=== PATIENT | female | born 1950 | race Caucasian/White ===

== ENCOUNTER 2017-10-02 09:01 | Outpatient (CLI) | payer MEDICARE ==
--- NOTE | 2017-10-02 10:06 | CT ---
CHEST CT SCAN WITHOUT IV CONTRAST: History: 67-year-old female with history of pulmonary nodules demonstrated on a prior MRI. Technique: Noncontrast CT examination of the chest is performed. FINDINGS: There is bilateral hyperinflation and chronic lung changes. There are numerous scattered areas of mariano ear, interstitial, and reticular nodule parenchymal changes bilaterally with numerous scattered small pulmonary nodules up to approximately 0.5 cm in size, some of which are circumscribed and some of wh ich are less well circumscribed. There is evidence for bronchiectasis and scarring and some atelectas is in the right middle lobe and mild scarring in the lingula. There are no discrete nodules greater t rizzo 0.6 cm in size. No evidence for mediastinal mass or adenopathy. No pleural effusion or pericardia l effusion. Visualized upper abdomen is unremarkable. IMPRESSION: Bilateral hyperinflation and chronic lung changes. Numerous scattered up to approximately 0.5 cm diam eter nodules bilaterally, somewhat worse on the right side. Right middle lobe bronchiectasis and scar ring with some minimal volume loss. No discrete 0.6 cm or larger nodules. No mediastinal mass or jose manuel opathy. Depending upon patient's risk fractures, consider follow up CT scan in 6 months to document stability . POS: YON
== END 2017-10-02 09:02 | disposition home or self-care (01) ==
LOC: CT 09:01
PROVIDERS: ATTEND Internal Medicine
DX: A31.0 Pulmonary mycobacterial infection (principal); R91.8 Other nonspecific abnormal finding of lung field; J98.4 Other disorders of lung
CPT/HCPCS: 71250

== ENCOUNTER 2018-07-09 09:04 | Outpatient (CLI) | payer MEDICARE | END 2018-07-09 09:05 | disposition home or self-care (01) | LOC: BICCT 09:04 | PROVIDERS: ATTEND Internal Medicine | DX: R91.8 Other nonspecific abnormal finding of lung field (principal); J90 Pleural effusion, not elsewhere classified | CPT/HCPCS: 71250 ==

== ENCOUNTER 2018-08-21 11:01 | Outpatient (CLI) | payer MEDICARE ==
--- NOTE | 2018-08-25 12:57 | RAD ---
MODIFIED BARIUM SWALLOW WITH SPEECH THERAPIST: History: Pneumonitis due to inhalation of food and vomit. Feeding difficulties. Gastroesophageal refl ux disease. FINDINGS/IMPRESSION: A modified barium swallow was performed by the speech therapist and a video was performed. No aspirat ion or penetration was seen during the examination. Please see dedicated speech therapy report for sp ecific findings and recommendations. POS: [facility]
== END 2018-08-21 11:02 | disposition home or self-care (01) ==
PROVIDERS: ATTEND Internal Medicine
DX: J69.0 Pneumonitis due to inhalation of food and vomit (principal); R13.19 Other dysphagia; R63.3 Feeding difficulties; K21.9 Gastro-esophageal reflux disease without esophagitis
CPT/HCPCS: 74230; G8996-GN-CH; G8997-GN-CH; G8998-GN-CH

== ENCOUNTER 2018-09-08 18:00 | Outpatient (CLI) | payer MEDICARE | END 2018-09-08 18:01 | disposition home or self-care (01) | LOC: SLEEPLAB 18:00 | PROVIDERS: ATTEND Internal Medicine | DX: G47.33 Obstructive sleep apnea (adult) (pediatric) (principal); R53.83 Other fatigue; R35.1 Nocturia; R06.83 Snoring; G47.00 Insomnia, unspecified; Z68.1 Body mass index [BMI] 19.9 or less, adult | CPT/HCPCS: 95806 ==

== ENCOUNTER 2019-03-30 08:56 | Outpatient (CLI) | payer MEDICARE ==
--- NOTE | 2019-03-30 09:27 | CT ---
EXAM: CT of the chest without contrast HISTORY: Intermittent right-sided pneumonia COMPARISON: 10/02/2017 TECHNIQUE: Multiple contiguous axial images were obtained in a CT the chest without contrast. Coronal reformats were performed. FINDINGS: HEART: Normal in size without focal cardiac abnormality MEDIASTINUM: No hilar or mediastinal lymphadenopathy. Evaluation of the mediastinum is limited withou t IV contrast. LUNGS: There are multifocal areas of airspace opacity in the lungs. These are predominantly in the ri ght lung but there is also a region in the left lower lobe. The majority of these areas are not mass like. However a few areas of nodularity are seen scattered amongst the airspace opacities. The l argest measures 10 mm in size. When compared to the prior examination, these appear to be worsening. Developing bronchiectasis is seen in the right lung. PLEURAL SPACE: Small right pleural effusion CHEST WALL SOFT TISSUES: Unremarkable OSSEOUS STRUCTURES: Unremarkable VISUALIZED SUBDIAPHRAGMATIC STRUCTURES: Unremarkable IMPRESSION: 1. Worsening multifocal areas of airspace opacity in the lungs. This could be secondary to an chronic inflammatory or infectious process. Malignancy is much less likely but also of consideration. 2. Development of small right pleural effusion
== END 2019-03-30 08:57 | disposition home or self-care (01) ==
LOC: CT 08:56
PROVIDERS: ATTEND Internal Medicine
DX: R05 Cough (principal); R91.8 Other nonspecific abnormal finding of lung field; A31.0 Pulmonary mycobacterial infection; J90 Pleural effusion, not elsewhere classified
CPT/HCPCS: 71250

== ENCOUNTER 2019-03-31 06:55 | Day surgery (SDC) | payer MEDICARE ==
[2019-03-30 17:45] VITALS: BMI 14.3
[2019-03-31] MEDS ORDERED: Lidocaine 2% 10 ML INJ ONE (07:56)
[2019-03-31] MEDS ORDERED: Propofol 1,000 MG/100 ML VIAL IV ONE (09:41)
[2019-03-31] MEDS ORDERED: Fentanyl 250 MCG/5 ML VIAL ONE (09:42)
[2019-03-31 12:05] LABS: BF Color Red; BF WBC/Nonhematics Ct. - Manua 2280 /cumm; Body Fluid Source Bronchial Washings; Clarity Cloudy/Turbid (Clear); Tube # EDTA
[2019-03-31 12:24] LABS: BF Segmented Neutrophils 35 %; Cell Count Non Hematic 60 %; Lymphocytes 5 %
--- NOTE | 2019-03-31 16:27 | OP ---
DATE OF PROCEDURE: 03/31/2019 SERVICE: Pulmonary Medicine. PROCEDURES PERFORMED: Fiberoptic bronchoscopy with; 1. Visual airway inspection. 2. Bronchoalveolar lavage of the right middle lobe. 3. Transbronchial biopsies from the right upper lobe, right middle lobe, right lower lobe. PREPROCEDURE DIAGNOSES: 1. Pulmonary infiltrate. 2. Bronchiectasis exacerbation. POSTPROCEDURE DIAGNOSES: 1. Pulmonary infiltrate. 2. Bronchiectasis exacerbation. ANESTHESIA: General anesthesia. PREANESTHESIA ASSESSMENT: H and P had been performed. The patient's medications and allergies were reviewed. Informed consent was obtained after discussing the risks, benefits, and rationale for performing the procedure as well as alternative options. DESCRIPTION OF PROCEDURE: A time-out was performed identifying the correct procedure and the patient with name and date of . A diagnostic fiberoptic bronchoscope was introduced through the 8.0 endotracheal tube. The bronchoscope was advanced into the trachea, where the tracheobronchial tree inspection was carried out with identification of the right upper lobe, right middle lobe, right lower lobe, left upper lobe, lingula, and left lower lobe. Anatomy was normal to the segmental level. Bronchoalveolar lavage was obtained from the right middle lobe. Under fluoroscopic guidance, transbronchial biopsies were obtained from the posterior segment of the right upper lobe, lateral segment of the right middle lobe, and superior segment of the right lower lobe. Hemostasis was verified and the bronchoscope was subsequently removed from the patient. Postprocedure fluoroscopy did not demonstrate a pneumothorax. FINDINGS: 1. Morena was very sharp. 2. No discrete endobronchial disease was present. 3. Secretions were a very thick, purulent, and slimy. That being said, they were only [id number] in quantity. SPECIMENS OBTAINED: 1. Pathology on BAL and transbronchial biopsies. 2. Microbiology on BAL. COMPLICATIONS: None. ESTIMATED BLOOD LOSS: 2 mL. FLUOROSCOPY TIME: 1 minute 30 seconds. DISPOSITION: The patient will be discharged home with postprocedure instructions. She will return to clinic as previously set up in 6 weeks. Job ID: [id number]
[2019-04-03 12:12] LABS: Fungus Stain Final report (.)
== END 2019-03-31 12:37 | disposition home or self-care (01) ==
LOC: SDC 06:55
PROVIDERS: ATTEND Internal Medicine
PROC: 0B9F8ZX Drainage of Right Lower Lung Lobe, Via Natural or Artificial Opening Endoscopic, Diagnostic (ICD-10-PCS; principal; 2019-03-31)
PROC: 0B9C8ZX Drainage of Right Upper Lung Lobe, Via Natural or Artificial Opening Endoscopic, Diagnostic (ICD-10-PCS; 2019-03-31)
PROC: 0B9G8ZX Drainage of Left Upper Lung Lobe, Via Natural or Artificial Opening Endoscopic, Diagnostic (ICD-10-PCS; 2019-03-31)
PROC: 0BDF8ZX Extraction of Right Lower Lung Lobe, Via Natural or Artificial Opening Endoscopic, Diagnostic (ICD-10-PCS; 2019-03-31)
PROC: 0BDC8ZX Extraction of Right Upper Lung Lobe, Via Natural or Artificial Opening Endoscopic, Diagnostic (ICD-10-PCS; 2019-03-31)
PROC: 0BDG8ZX Extraction of Left Upper Lung Lobe, Via Natural or Artificial Opening Endoscopic, Diagnostic (ICD-10-PCS; 2019-03-31)
DX: J47.1 Bronchiectasis with (acute) exacerbation (principal); R91.8 Other nonspecific abnormal finding of lung field
CPT/HCPCS: 85060; 87070; 87102; 87116; 87205; 87206; 88112; 88305; 88312; 88313; 89051; J2001; J2704; J3010; J7620

== ENCOUNTER 2019-04-01 12:44 | Inpatient (IN) | payer MEDICARE ==
[2019-04-01] MEDS ORDERED: Acetaminophen 325 MG TAB ONE (12:55)
[2019-04-01 13:22] LABS: #Eosinphils 0.1 thou/uL (0.0-0.7); #Lymphocytes 0.9 thou/uL (1.20-3.40); #Monocytes 0.7 thou/uL (0.11-0.59); %Basophils 0.1 % (0.0-1.0); %Eosinophils 0.5 % (0.0-10.0); %Lymphocytes 7.8 % (21.0-51.0); %Monocytes 5.6 % (0.0-10.0); Hemoglobin 12.5 g/dL (12.0-16.0); Mean Corpuscular HGB CONC 33.4 g/dL (32.0-36.0); Mean Corpuscular Hemoglobin 30.3 pg (27.0-31.0); Mean Corpuscular Volume 90.8 fL (78.0-98.0); Mean Platelet Volume 6.7 fL (7.4-10.4); Platelet Count 269 thou/uL (130-400); Red Blood Cell (RBC) Count 4.12 mill/uL (4.20-5.40); White Blood Cell (WBC) Count 11.6 thou/uL (4.8-10.8)
[2019-04-01 13:46] LABS: ALT (SGPT) 16 U/L (8-55); AST (SGOT) 18 U/L (5-34); Albumin 3.4 g/dL (3.4-4.8); Alkaline Phosphatase 69 U/L (40-150); Anion Gap 13 mmol/L (10-20); BUN (Urea Nitrogen) 11 mg/dL (9.8-20.1); Bilirubin, Total 1.3 mg/dL (0.2-1.2); Calc. Creatinine Clearance 0 mL/min (70-130); Calcium 9.1 mg/dL (7.8-10.44); Carbon Dioxide 23 mmol/L (23-31); Chloride 97 mmol/L (98-107); Estimated GFR-MDRD 35; Globulin 2.9 g/dL (2.4-3.5); Glucose 85 mg/dL (80-115); Potassium 3.9 mmol/L (3.5-5.1); Protein, Total 6.3 g/dL (6.0-8.3); Sodium 129 mmol/L (136-145)
[2019-04-01 13:51] LABS: Bilirubin Negative (Negative); Blood, Urine Moderate (Negative); Clarity CLOUDY (Clear); Glucose, Urine (Dipstick) Negative (Negative); Leukocyte Negative (Negative); Nitrite Negative (Negative); Protein, Urine (Dipstick) Negative (Neg-Trace); Specific Gravity, Urine 1.015 (1.002-1.036); Urobilinogen 0.2 mg/dL (0.2-1.0)
[2019-04-01 13:53] LABS: Bacteria/HPF None Seen HPF (None Seen); Hyaline Casts/LPF 0-3 HYALINE CAST LPF (0-3 Hyaline); Squamous Epithelial 0-3 HPF (0-3); WBC/HPF None Seen HPF (0-3)
[2019-04-01 13:54] LABS: Yeast-AUWi Flag 25.4 (0-25.0)
--- NOTE | 2019-04-01 13:56 | RAD ---
SINGLE VIEW OF THE CHEST: COMPARISON: 03/17/2019. HISTORY: Previous lung biopsy. Weakness and fever. FINDINGS: A single view of the chest shows a normal size cardiomediastinal silhouette. There is worsening of t he previously seen airspace opacity projecting over the right lung. No left-sided infiltrates are se en. IMPRESSION: Worsening right pulmonary infiltrate. POS: [facility]
[2019-04-01 14:10] LABS: Yeast-All Forms None Seen HPF (None Seen)
[2019-04-01] MEDS ORDERED: Norepinephrine 8 MG/250 ML IVPB SCH (16:15)
[2019-04-01] MEDS ORDERED: Norepinephrine 8 MG in Dextrose 5% in Water 250 ML IVPB PRN (16:18)
[2019-04-01 17:14] LABS: Troponin I Less than 0.010 ng/mL (< 0.028)
[2019-04-01] MEDS ORDERED: Sodium Chloride 0.9% 1,000 ML IV SCH (18:32)
[2019-04-01 18:34] VITALS: BMI 15.3
--- NOTE | 2019-04-01 18:34 | RAD ---
PORTABLE AP CHEST X-RAY: 04/01/19 HISTORY: Weakness. COMPARISON: 04/01/19 at 1257 hours. FINDINGS: Again noted is the parenchymal opacities at the right lung base which is not significantly changed co mpared to the prior exam. Left lung remains clear. There has been interval placement of a right inter nal jugular vein central venous catheter with tip overlying the expected location of the SVC. No pneu mothorax is visualized. No other interval change. IMPRESSION: 1. Interval placement of a right internal jugular vein central venous catheter. 2. Parenchymal opacity right mid lung zone and right lung base worrisome for pneumonia. Follow-u p to resolution is recommended. POS: [facility]
[2019-04-01] MEDS ORDERED: Guaifenesin DM 100-10/5 ML UDCUP PO PRN (18:45)
[2019-04-01] MEDS ORDERED: Ondansetron PF 4 MG/2 ML Vial IVP PRN (18:45)
[2019-04-01] MEDS ORDERED: Norepinephrine 8 MG/0.9% NS 250 ML IVPB SCH (18:45)
[2019-04-01] MEDS ORDERED: Bisacodyl 10 MG SUPP PR PRN (18:45)
[2019-04-01] MEDS ORDERED: CCU Electrolyte Replacement 1 EACH FS SCH (18:45)
[2019-04-01] MEDS ORDERED: Acetaminophen 325 MG TAB PO PRN (18:45)
[2019-04-01] MEDS ORDERED: Senokot S 8.6-50 MG TAB PO PRN (18:45)
[2019-04-01] MEDS ORDERED: Potassium Chloride 20 MEQ TAB PO PRN (18:49)
[2019-04-01] MEDS ORDERED: Potassium Chloride 40 MEQ in Sodium Chloride 0.9% 250 ML 250 ML IVPB PRN (18:49)
[2019-04-01] MEDS ORDERED: Potassium Phosphate 12 MMOL in Sodium Chloride 0.9% 250 ML 250 ML IV PRN (18:49)
[2019-04-01] MEDS ORDERED: Potassium Phosphate 15 MMOL in Sodium Chloride 0.9% 250 ML 250 ML IV PRN (18:49)
[2019-04-01] MEDS ORDERED: Potassium Chloride 40 MEQ in Premix Bag 1 BAG IVPB PRN (18:49)
[2019-04-01] MEDS ORDERED: PHOS-NAK 1 PKT PACK PO PRN ×2 (18:49)
[2019-04-01] MEDS ORDERED: Magnesium Oxide 400 MG TAB PO PRN ×2 (18:49)
[2019-04-01] MEDS ORDERED: Magnesium 2 GM/50 ML 2 GM in Premix Bag 1 BAG IVPB PRN (18:49)
[2019-04-01] MEDS ORDERED: Potassium Phosphate 9 MMOL in Sodium Chloride 0.9% 100 ML IVPB PRN (18:49)
[2019-04-01] MEDS ORDERED: CCU ELECTROLYTE REPLACEMENT PROTOCOL FS PRN (18:49)
[2019-04-01 19:09] LABS: Platelet Count 265 thou/uL (130-400)
[2019-04-01 19:12] LABS: Fibrinogen 434 mg/dL (253-463)
[2019-04-01 19:13] LABS: INR-International Normal Ratio 1.2; PTT 33.8 SEC (22.9-36.1); Prothrombin Time 15.8 SEC (12.0-14.7)
[2019-04-01 19:14] LABS: D-Dimer Test 1.33 *mcg/mL (0.27-0.43)
--- NOTE | 2019-04-01 19:26 | HP ---
PRIMARY CARE PHYSICIAN: Dr. Williamson. PRIMARY LEAD NEURODIAGNOSTIC TECHNOLOGIST: Dr. Hill REASON FOR ADMISSION: Pneumonia with septic shock. HISTORY OF PRESENTING ILLNESS: The patient gives history of having had bronchoscopy done on the by Dr. Hill. She has had history of MAC infection and has had pneumonia nearly 3 times in the last year, and a bronchoscopy was done for the same reason. After bronchoscopy, the patient was feeling good. She was alert and was in fact ambulating prior to going home. She was watching TV yesterday evening. She apparently fell asleep, and her tried to wake her up, but she was very drowsy. She had a temperature of 103. The patient finally went to bed. This morning, the patient was still sleepy and the tried to wake her up. She was slow to talk and was falling asleep. She couldn't stay awake and in fact her drowsiness had become worse. She developed a fever of 104 this morning and was barely able to stand. Has dry cough, but no expectoration. She has known history of MAC infection and has taken one year of antibiotics in 2017 per patient. No complaints of urinary frequency or urgency. No complaints of chest pain or palpitation. PAST MEDICAL AND SURGICAL HISTORY: History of MAC infection, for which she has taken antibiotics for one year in 2017; hypothyroidism; cataract surgery; right hand surgery; appendectomy; hysterectomy. The patient is heterozygous for cystic fibrosis. CURRENT MEDICATIONS: 1. Gabapentin 100 mg p.o. q.h.s. 2. Levothyroxine 25 mcg p.o. daily. 3. Xanax 0.5 mg p.o. daily. PERSONAL HISTORY: Does not abuse alcohol or drugs. No history of smoking. FAMILY HISTORY: Mother at the age of 83 years. She has had history of bladder cancer. Father of lung cancer and was a smoker. He at the age of 71 years. CODE STATUS: Full. Power of criminal attorney is Mr. Gianfranco Eric. REVIEW OF SYSTEMS: CONSTITUTIONAL: Negative for weight loss or gain, ability to conduct usual activities. SKIN: Negative for rash, itching. EYES: Negative for double vision, pain. ENT/MOUTH: Negative for nose bleeding, neck stiffness, pain, tenderness. CARDIOVASCULAR: Negative for palpitations, dyspnea on exertion, orthopnea. RESPIRATORY: Negative for shortness of breath, wheezing, cough, hemoptysis, fever or night sweats. GASTROINTESTINAL: Negative for poor appetite, abdominal pain, heartburn, nausea , vomiting, constipation, or diarrhea. GENITOURINARY: Negative for urgency, frequency, dysuria, nocturia. MUSCULOSKELETAL: Negative for pain, swelling. NEUROLOGIC/PSYCHIATRIC: Negative for anxiety, depression. ALLERGY/IMMUNOLOGIC: Negative for skin rash, bleeding tendency. PHYSICAL EXAMINATION: GENERAL: The patient is a 68-year-old female who is currently not in any acute distress. VITAL SIGNS: Blood pressure on arrival was 104/48, later it dropped down to 78/ 38. She was given 2.5 L of bolus normal saline in the ER. Respiratory rate is 22, pulse 80 per minute, saturation is 95% on room air, temperature was 102.6 degrees in the ER. NECK: Supple. No elevated JVD. HEENT: Eyes, extraocular muscles intact. Pupils reacting to light. Oral cavity, mucous membranes are dry. No exudates or congestion. CARDIOVASCULAR: S1 and S2 heard, regular rhythm. RESPIRATORY: Air entry 1+ bilateral. Scattered rhonchi plus no rales or wheezes. ABDOMEN: Soft. Bowel sounds heard. No tenderness, rigidity, or guarding. EXTREMITIES: No peripheral edema or calf tenderness. VASCULAR: Peripheral pulses 1+ bilateral. No ischemic ulcerations or gangrene. CENTRAL NERVOUS SYSTEM: No gross focal deficits noted. The patient is alert and oriented now. PSYCHIATRIC: The patient's mood is euthymic. No hallucinations or delusions. LABORATORY DATA: The patient had an acid-fast bacilli taken with bronchial washing yesterday, which is 3+ positive for acid-fast bacilli. A full culture is pending at present. Chest x-ray done shows right lung infiltrate. White count of 11, H and H 12 and 37, platelet count 269 with 86% neutrophils. Sodium 129, serum bicarb is 23, BUN 11, creatinine 1.47. Lactic acid 1.6. Liver enzymes within normal limits. Troponin x2 is negative. Albumin is 3.4. UA shows 11 to 20 rbc's, but no sign of infection. The patient's right middle lobe biopsy from yesterday shows no malignancy. There is mildly inflamed respiratory epithelium and alveolar tissue. The patient's bronchial washing cytology and cell block done shows no malignant cells. There were respiratory epithelial cells, lymphocytes, neutrophils, and macrophages. EKG done shows normal sinus rhythm at 83 beats per minute. This is low voltage EKG with poor R-wave progression. CLINICAL IMPRESSION AND PLAN: The patient will be admitted to ICU for right lung pneumonia with sepsis and septic shock. She has been initiated on Levophed drip and will continue the same. The patient has received 2.5 L of normal saline bolus in the ER. We will keep her on normal saline at 100 mL/hour. Blood cultures have been obtained in the ER. We will obtain sputum cultures if she can provide one. The patient has AFB positive on her bronchial washings done yesterday and has prior history of Mycobacterium avium complex as well. We will await Dr. Hill's opinion and likely the patient needs to be on medications for her Mycobacterium avium complex. For now, we will place her on cefepime, Levaquin, and vancomycin until cultures are back. We will obtain cortisol level stat and place her on Solu- Medrol 20 mg IV q.8 hourly. This will be rapidly discontinued once her systolic blood pressures trend in the 90s. Echo with 2D Doppler for LV function will also be obtained. Dr. Hill has been consulted from ER. We will keep her on clear liquids for now until the patient is on Levophed. The code status was discussed with her and she wants to be a full code. Job ID: [id number] [facility]
[2019-04-01] MEDS: Sodium Chloride 0.9% 1,000 ML IV SCH (19:29)
[2019-04-01] MEDS: Cefepime 2 GM in Sodium Chloride 0.9% 100 ML IVPB SCH (19:30)
[2019-04-01 19:37] LABS: FSP-Qualitative ABNORMAL (Normal); FSP-Semiquantitative >=5 & <20 mcg/mL (Less than 5)
[2019-04-01] MEDS: Gabapentin 100 MG CAP PO SCH (19:58)
[2019-04-01] MEDS: Famotidine 20 MG TAB PO SCH (19:58)
[2019-04-01] MEDS: guaiFENesin ER 600 MG TAB PO SCH (19:59)
[2019-04-01] MEDS ORDERED: Norepinephrine 8 MG in Dextrose 5% in Water 242 ML IVPB SCH (20:01)
[2019-04-01 20:35] LABS: Troponin I Less than 0.010 ng/mL (< 0.028)
[2019-04-01] MEDS ORDERED: Vancomycin HCl 1 GM in Premix Bag 1 BAG IVPB SCH (21:00)
[2019-04-01] MEDS: methylPREDNISolone Sod Succ 40 MG VIAL IVP SCH (22:57)
[2019-04-02 05:29] LABS: #Lymphocytes 0.3 thou/uL (1.20-3.40); #Monocytes 0.1 thou/uL (0.11-0.59); #Neutrophils 11.6 thou/uL (1.40-6.50); %Basophils 0.2 % (0.0-1.0); %Eosinophils 0.2 % (0.0-10.0); %Lymphocytes 2.8 % (21.0-51.0); %Monocytes 1.1 % (0.0-10.0); %Neutrophils 95.9 % (42.0-75.0); Hemoglobin 10.7 g/dL (12.0-16.0); Mean Corpuscular HGB CONC 33.2 g/dL (32.0-36.0); Mean Corpuscular Hemoglobin 30.4 pg (27.0-31.0); Mean Corpuscular Volume 91.5 fL (78.0-98.0); Platelet Count 228 thou/uL (130-400); RBC Distribution Width 12.1 % (11.5-14.5); Red Blood Cell (RBC) Count 3.53 mill/uL (4.20-5.40); White Blood Cell (WBC) Count 12.1 thou/uL (4.8-10.8)
[2019-04-02 05:47] LABS: Anion Gap 10 mmol/L (10-20); BUN (Urea Nitrogen) 9 mg/dL (9.8-20.1); Calc. Creatinine Clearance 38 mL/min (70-130); Calcium 8.3 mg/dL (7.8-10.44); Carbon Dioxide 20 mmol/L (23-31); Chloride 109 mmol/L (98-107); Estimated GFR-MDRD 59; Glucose 127 mg/dL (80-115); Potassium 3.5 mmol/L (3.5-5.1); Sodium 135 mmol/L (136-145)
[2019-04-02] MEDS: Levothyroxine Sodium 25 MCG TAB PO SCH (06:25)
[2019-04-02] MEDS: methylPREDNISolone Sod Succ 40 MG VIAL IVP SCH ×3 (06:25→22:00)
[2019-04-02] MEDS: Sodium Chloride 0.9% 1,000 ML IV SCH ×2 (06:31→15:43)
[2019-04-02] MEDS: Cefepime 2 GM in Sodium Chloride 0.9% 100 ML IVPB SCH ×2 (07:40→20:05)
[2019-04-02] MEDS: Enoxaparin Sodium 30 MG/0.3 ML SYRINGE SC SCH (09:35)
[2019-04-02] MEDS: guaiFENesin ER 600 MG TAB PO SCH ×2 (09:38→20:06)
--- NOTE | 2019-04-02 11:34 | CON ---
DATE OF CONSULTATION: 04/01/2019 SERVICE: Pulmonary Medicine. INTERVAL HISTORY: The patient had a bronchoscopy yesterday. This was complicated by fever. This morning, we called her in some Levaquin. Unfortunately, she was not able to get on that medication. She ended up having increasing weakness and subsequently presented to the emergency department. She denies any nausea or vomiting. She is having fevers and chills. She is coughing up a little bit of purulent sputum. PAST MEDICAL HISTORY: 1. Hypothyroidism. 2. Low vitamin D. 3. Chronic kidney disease. 4. Bronchiectasis with history of mucopurulent sputum production. 5. History of Mycobacterium avium complex, status post one year of antibiotic with improvement in symptoms at that time. 6. Restless legs syndrome. 7. Heterozygote for cystic fibrosis (delta 508), and alpha-1 antitrypsin disease (MS). PAST SURGICAL HISTORY: 1. Hand surgery. 2. Hysterectomy. 3. Tubal ligation. 4. Appendectomy. 5. Bronchoscopy. SOCIAL HISTORY: Negative for alcohol, tobacco, or illicit drug use. She has no exposure to chemicals, dust, asbestos, or tuberculosis. FAMILY HISTORY: Noncontributory. She notes diabetes, COPD, cancer, depression, alcoholism, sleep apnea, high blood pressure, and stroke in primary relatives. ALLERGIES: NO KNOWN DRUG ALLERGIES. MEDICATIONS: List of her inpatient medications was reviewed. No specific updates were made at this time. REVIEW OF SYSTEMS: General, head, ears, eyes, nose, throat, cardiovascular, respiratory, GI, , musculoskeletal, neurologic, and skin are negative except as mentioned is the HPI. PHYSICAL EXAMINATION: VITAL SIGNS: Temperature 103, pulse 98, blood pressure 75/56, respirations 18, saturation 97% on room air. GENERAL: The patient is awake and alert, in no apparent distress. LUNGS: Rhonchi are present throughout bilateral lung peoples. There is not much of a prolonged expiratory phase. I do not appreciate any wheezing or crackles. HEART: Normal rate and regular. ABDOMEN: Soft, nontender, and nondistended. Bowel sounds are positive. MUSCULOSKELETAL: No cyanosis or clubbing. No pitting in the bilateral lower extremities. NEUROLOGIC: Grossly nonfocal. LABORATORY DATA: WBC 11.6, hemoglobin 12.5, platelets 269,000, neutrophil count is 86%, eosinophil count is low. Creatinine 1.47, which is above baseline. Total bilirubin 1.3. Sodium 129. Basic metabolic profile is, otherwise, unremarkable. Lactate 1.6. Troponin is negative x2. Urinalysis is unremarkable except for minimal hematuria. BAL demonstrates significant white blood cells. These are predominantly non hematological cells. Influenza A and B are negative. AFB smear from yesterday is 3+ positive. Bronchial washings are negative to date. Moderate white blood cells were identified, but no organisms were seen on Gram stain. Culture is currently pending. IMAGING DATA: Chest x-ray demonstrates an increasing infiltrate in the right mid lung zone, corresponding to where I performed my bronchoalveolar lavage. ASSESSMENT: 1. Septic shock. 2. Bronchiectasis with acute exacerbation. 3. History of Mycobacterium avium complex, status post full year of antibiotics with likely recurrence (AFB positive on smear). 4. Pulmonary infiltrate, in the area where my bronchoalveolar lavage was performed. 5. Heterozygote for cystic fibrosis (delta 508), and alpha-1 antitrypsin disease (MS). DISCUSSION AND PLAN: The infiltrate we saw on the chest x-ray is unlikely to represent a true pneumonia. This would not develop in a period of 24 hours. This most likely corresponds to the fluid that I pushed out there during my bronchial alveolar lavage. I do think that a brief course of Levaquin is indicated. She has had 2.5 L of fluid and continues to have persistent low blood pressure. As such , central line is being considered, and pressors will be initiated. She will be tucked into the ICU overnight. Pulmonary Critical Care will continue to follow along in this location, but will likely transition out of the ICU in short order. We are awaiting final culture results. It is most likely, she will once again need to be initiated on triple therapy. 70 minutes have been devoted to this patient in various activities. I personally reviewed all imaging studies and laboratory data noted within this document. For fifty percent of this time, I was interacting with the patient at the bedside or coordinating care with the care team. For the remainder of the time I was immediately available to the patient in the hospital unit. Job ID: [id number] [facility]
--- NOTE | 2019-04-02 11:35 | CON ---
DATE OF CONSULTATION: HISTORY OF PRESENT ILLNESS: Ruthy Eric is a patient of Dr. Hill, underwent a bronchoscopy 2 days ago. She presented with weakness, lightheadedness, shortness of breath, fever, and chills. The lab tells me so far she has 3+ acid-fast on the bronchial washings. They are trying to get identification as be sent to the [facility]. She was started on pressors and Levophed with a central line placed in this morning. She is still feeling lightheaded and weak, but feeling better. No cough. No chest pain. PAST MEDICAL HISTORY: Extensive history outlined by Dr. Hill pertinent for previous mycobacterium avium complex, hypothyroidism, renal failure, bronchiectasis, restless leg. She is apparently heterozygous for alpha-1 antitrypsin. PAST SURGICAL HISTORY: Bronchoscopy, appendix, tubal ligation, hysterectomy, previous hand surgery. She was given some Levaquin yesterday apparently. HOME MEDICATIONS: Include: 1. Gabapentin 100. 2. Levothyroxine 25. 3. Xanax p.r.n. SOCIAL HISTORY: Alcohol, none. Tobacco, none. REVIEW OF SYSTEMS: Ten-point negative. PHYSICAL EXAMINATION: GENERAL: Sick cachectic female. VITAL SIGNS: Blood pressure 126/64, pulse 89, respiratory rate 20, CHEST: No wheezing or crackles. CARDIAC: Normal S1 and S2. No gallops. ABDOMEN: No masses. NEUROLOGIC: Awake, alert, and responsive. LABORATORY DATA: White count 12,000, hemoglobin and hematocrit 10 and 32, platelet count 228. Lytes are normal. Urine was unremarkable. IMPRESSION: 1. Right lower lung pneumonia, previous history of mycobacterium avium complex. 2. Hypertension, rule out sepsis syndrome. 3. Hypothyroidism. 4. Cachexia. PLAN: I agree with broad-spectrum antibiotic, steroids, and supportive care. As noted, bronchial washings have been sent to the [facility] for further identification. X-ray looks worse compared to one about 6 months ago, probably superimposed pneumonia on top of a chronic bronchiectatic changes. This is a consultation note, 70 minutes, 50% direct patient care. Job ID: [id number]
--- NOTE | 2019-04-02 12:19 | PDOC.PN ---
- Subjective Encounter Start Date: 04/02/19 Encounter Start Time: 07:20 Subjective: feels better, no sob -: is off levophed from midnight -: tolerating liquids - Objective Resuscitation Status - Order Detail: 04/01/19 18:39 Resuscitation Status Routine Resuscitation Status: FULL: Full Resuscitation MAR Reviewed: Yes Vital Signs & Weight: Vital Signs (12 hours) Temp Pulse Resp Pulse Ox 04/02/19 11:00 98.6 F 04/02/19 08:00 97 04/02/19 07:11 74 23 H 04/02/19 07:00 98.0 F 04/02/19 05:00 97.7 F 04/02/19 01:00 98.1 F Weight Weight 91 lb 14.924 oz Most Recent Monitor Data Heart Rate from ECG 89 NIBP 104/54 NIBP BP-Mean 70 Respiration from ECG 25 SpO2 98 I&O: 04/01/19 04/02/19 04/03/19 06:59 06:59 06:59 Intake Total 1585.2 550 Output Total 1575 600 Balance 10.2 -50 Result Diagrams: 04/02/19 05:00 04/02/19 05:00 Phys Exam - Physical Examination HEENT: PERRLA, moist MMs Neck: no JVD, supple Respiratory: no wheezing, no rales Cardiovascular: RRR, no significant murmur Gastrointestinal: soft, non-tender, positive bowel sounds Musculoskeletal: no edema, pulses present Neurological: non-focal, moves all 4 limbs Psychiatric: normal affect, A&O x 3 Dx/Plan (1) Sepsis Code(s): A41.9 - SEPSIS, UNSPECIFIED ORGANISM Status: Acute Qualifiers: Sepsis type: sepsis due to unspecified organism Qualified Code(s): A41.9 - Sepsis, unspecified organism (2) PNA (pneumonia) Code(s): J18.9 - PNEUMONIA, UNSPECIFIED ORGANISM Status: Acute Qualifiers: Pneumonia type: due to unspecified organism Laterality: right Lung location: middle lobe of lung Qualified Code(s): J18.1 - Lobar pneumonia, unspecified organism (3) Bronchiectasis with (acute) exacerbation Status: Acute (4) H/O Mycobacterium avium complex infection Code(s): Z86.19 - PERSONAL HISTORY OF OTHER INFECTIOUS AND PARASITIC DISEASES Status: Chronic - Plan hemostable -: is on vanc, levaquin and cefepime, steroids, nebs -: afb full culture results are pending -: tx to med floor -: await blood cs, no fever now * . Review of Systems - Medications/Allergies Allergies/Adverse Reactions: Allergies Allergy/AdvReac Type Severity Reaction Status Date / Time No Known Allergies Allergy Verified 03/30/19 17:46 Medications: Current Medications Acetaminophen (Tylenol) 650 mg PO Q4H PRN PRN Reason: Headache/Fever/Mild Pain (1-3) Last Admin: 04/01/19 19:45 Dose: 650 mg Albuterol/Ipratropium (Duoneb) 3 ml NEB [id number] [facility] Last Admin: 04/02/19 07:11 Dose: 3 ml Bisacodyl (Dulcolax) 10 mg GA DAILYPRN PRN PRN Reason: Constipation Enoxaparin Sodium (Lovenox) 30 mg SC 0900 [facility] Last Admin: 04/02/19 09:35 Dose: 30 mg Famotidine (Pepcid) 20 mg PO QPM [facility] Last Admin: 04/01/19 19:58 Dose: 20 mg Gabapentin (Neurontin) 100 mg PO HS [facility] Last Admin: 04/01/19 19:58 Dose: 100 mg Guaifenesin (Mucinex) 600 mg PO BID [facility] Last Admin: 04/02/19 09:38 Dose: 600 mg Guaifenesin/Dextromethorphan (Robitussin Dm) 15 ml PO Q4H PRN PRN Reason: Cough Cefepime HCl 2 gm/ Sodium (Chloride) 100 mls @ 200 mls/hr IVPB 0800,2000 [facility] Last Admin: 04/02/19 07:40 Dose: 100 mls Sodium Chloride (Normal Saline 0.9%) 1,000 mls @ 100 mls/hr IV .Q10H [facility] Last Admin: 04/02/19 06:31 Dose: 1,000 mls Potassium Chloride 40 meq/ (Sodium Chloride) 270 mls @ 135 mls/hr IVPB ASDIR PRN PRN Reason: FOR SERUM K+ 2.5 - 3.5 Potassium Chloride 40 meq/ (Device) 100 mls @ 50 mls/hr IVPB ASDIR PRN PRN Reason: FOR SERUM K+ 2.5 - 3.5 Magnesium Sulfate 1 gm/ Sodium (Chloride) 102 mls @ 102 mls/hr IV PRN PRN PRN Reason: MAG LEVEL 1.4 - 2.0 Magnesium Sulfate 2 gm/ Device 50 mls @ 50 mls/hr IVPB ASDIR PRN PRN Reason: MAGNESIUM < 1.4 Potassium Phosphate 9 mmol/ (Sodium Chloride) 103 mls @ 25.75 mls/hr IVPB ASDIR PRN PRN Reason: Phosphate 1.0-1.8 Potassium Phosphate 12 mmol/ (Sodium Chloride) 254 mls @ 63.5 mls/hr IV ASDIR PRN PRN Reason: Serum phosphate 0.5-0.9 Potassium Phosphate 15 mmol/ (Sodium Chloride) 255 mls @ 63.75 mls/hr IV ASDIR PRN PRN Reason: Serum Phos < 0.5 Norepinephrine Bitartrate 8 mg (/ Dextrose/Water) 250 mls @ 0 mls/hr IVPB INF ANT; Protocol Vancomycin HCl 500 mg/ Sodium (Chloride) 100 mls @ 100 mls/hr IVPB Q24HR@2100 [facility] Levofloxacin 750 mg/ Device 150 mls @ 100 mls/hr IVPB 0900 [facility] Last Admin: 04/02/19 09:38 Dose: 150 mls Levothyroxine Sodium (Synthroid) 25 mcg PO 0600 [facility] Last Admin: 04/02/19 06:25 Dose: 25 mcg Magnesium Oxide (Magnesium Oxide) 400 mg PO BIDPRN PRN PRN Reason: FOR SERUM MAG 1.4 - 2.0 Magnesium Oxide (Magnesium Oxide) 800 mg PO PRN PRN PRN Reason: FOR SERUM MAG < 1.4 Methylprednisolone Sodium Succinate (Solu-Medrol) 20 mg IVP Q8HR [facility] Last Admin: 04/02/19 06:25 Dose: 20 mg Miscellaneous Medication (Ccu Electrolyte Replacement) 1 each FS ONE [facility] Stop: 05/01/19 18:46 Miscellaneous Medication (Phos-Nak) 1 pkt PO TIDPRN PRN PRN Reason: FOR PHOS LEVEL 1.0 - 1.8 Miscellaneous Medication (Phos-Nak) 2 pkt PO TIDPRN PRN PRN Reason: FOR PHOS LEVEL 0.5 - 1.0 Miscellaneous Medication (Pharmacy To Dose) 1 each IVPB PRN PRN PRN Reason: Pharmacy to dose Ccu Electrolyte (Replacement Protocol) 0 each FS PRN PRN PRN Reason: FOR ELECTROLYTE REPLACEMENT Ondansetron HCl (Zofran) 4 mg IVP Q6H PRN PRN Reason: Nausea/Vomiting Potassium Chloride (K-Dur) 40 meq PO ASDIR PRN PRN Reason: FOR SERUM K+ 2.5 - 3.5 Last Admin: 04/02/19 07:12 Dose: 40 meq Potassium Chloride (Klor-Con) 40 meq PER TUBE ASDIR PRN PRN Reason: FOR SERUM K+ 2.5-3.5 Senna/Docusate Sodium (Senokot S) 2 tab PO BID PRN PRN Reason: Constipation Sodium Chloride (Flush - Normal Saline) 10 ml IVF Q12HR ANT Last Admin: 04/01/19 19:59 Dose: 10 ml Sodium Chloride (Flush - Normal Saline) 10 ml IVF PRN PRN PRN Reason: Saline Flush
[2019-04-02] MEDS: Gabapentin 100 MG CAP PO SCH (20:06)
[2019-04-02] MEDS: Famotidine 20 MG TAB PO SCH (20:06)
[2019-04-02] MEDS ORDERED: ALPRAZolam 0.5 MG TAB PO SCH (21:00)
[2019-04-02] MEDS ORDERED: Vancomycin HCl 500 MG in Sodium Chloride 0.9% 100 ML IVPB SCH (21:00)
[2019-04-03 00:43] LABS: Bilirubin Negative (Negative); Blood, Urine Trace (Negative); Clarity CLEAR (Clear); Glucose, Urine (Dipstick) Negative (Negative); Leukocyte Negative (Negative); Nitrite Negative (Negative); Protein, Urine (Dipstick) Negative (Neg-Trace); Specific Gravity, Urine 1.004 (1.002-1.036); Urobilinogen 0.2 mg/dL (0.2-1.0)
[2019-04-03 00:46] LABS: Bacteria/HPF None Seen HPF (None Seen); Hyaline Casts/LPF 0-3 HYALINE CAST LPF (0-3 Hyaline); RBC/HPF 0-3 HPF (0-3); Squamous Epithelial None Seen HPF (0-3); WBC/HPF None Seen HPF (0-3)
[2019-04-03] MEDS: Sodium Chloride 0.9% 1,000 ML IV SCH ×3 (01:58→10:00)
[2019-04-03] MEDS: Levothyroxine Sodium 25 MCG TAB PO SCH (05:31)
[2019-04-03] MEDS: methylPREDNISolone Sod Succ 40 MG VIAL IVP SCH (05:31)
[2019-04-03] MEDS: Enoxaparin Sodium 30 MG/0.3 ML SYRINGE SC SCH (08:08)
[2019-04-03] MEDS: Cefepime 2 GM in Sodium Chloride 0.9% 100 ML IVPB SCH (08:08)
[2019-04-03] MEDS: guaiFENesin ER 600 MG TAB PO SCH (08:09)
[2019-04-03 08:12] VITALS: BP 100/59; TEMP 97.7
--- NOTE | 2019-04-03 09:51 | PRG ---
DATE OF SERVICE: 04/03/2019 SUBJECTIVE: This morning, she is better. She is eager to go home. OBJECTIVE: VITAL SIGNS: Temperature is 97, pulse 110, respirations 16, sats 94%, blood pressure 100/59. GENERAL: Cachectic lady. No distress. CHEST: No wheezing or crackles. CARDIAC: Normal S1 and S2. No gallops. ABDOMEN: No masses. IMPRESSION: 1. Status post bronch, febrile illness, culture negative. 2. Acid-fast 3+ on the bronch washings, being sent to the [facility], [facility]. 3. Previous history of mycobacterium avium complex. PLAN: Switch over to oral antibiotics. She will be discharged to home. Follow up with Dr. Hill. Job ID: [id number]
--- NOTE | 2019-04-04 04:21 | DIS ---
DATE OF ADMISSION: 04/01/2019 DATE OF DISCHARGE: 04/03/2019 PRIMARY CARE PROVIDER: Jeff Williamson MD DISCHARGE DIAGNOSES: 1. Septic shock. 2. Right lung pneumonia. CONDITION OF PATIENT ON THE DAY OF DISCHARGE: Stable. I assessed Ms. Eric on the day of discharge. She reports occasional dry cough, no fever. Vital signs are stable. S1 and S2 are heard, regular. Lungs are clear to auscultation bilaterally. CONSULTATIONS DURING THIS HOSPITALIZATION: Pulmonology, Dr. Hill. HOSPITAL COURSE: Ms. Eric is a pleasant 68-year-old lady, who was admitted to [facility] on April 01, 2019, for septic shock secondary to right-sided pneumonia. Please refer to Dr. Srivastava's history and physical note dated April 01, 2019 for further details regarding the admission. She was seen by Pulmonary and Critical Care Medicine. She was initially admitted to the critical care unit and treated with Levophed drip. She also has AFB positive bronchial washings from the day prior to this admission. Final report is pending, she will follow up with Pulmonology for the same. She improved with antibiotics in the critical care unit. She was transferred to the medical floor and continued to improve. She was seen by Pulmonology Service on April 03, 2019, and has been cleared for discharge on oral antibiotics. DISCHARGE MEDICATIONS: 1. Vitamin D 400 units every week. 2. Albuterol nebulizers as needed. 3. Xanax 0.5 mg at bedtime. 4. Gabapentin 100 mg at bedtime. 5. Mucinex 600 mg 2 times a day. 6. Synthroid 25 mcg daily. 7. Normal saline nebulizers in the evening. 8. Levofloxacin 750 mg daily for 1 week. Many thanks for allowing me to participate in your patient's care. Please feel free to contact me with any questions or concerns. Please note that final blood cultures are pending at the time of this dictation. Preliminary blood cultures are negative. She has been advised to follow up with her primary care provider for final blood culture reports. DISCHARGE DESTINATION: Home. TIME SPENT: Total amount of time spent coordinating this discharge: 32 minutes. Job ID: [id number]
== END 2019-04-03 12:44 | disposition home or self-care (01) | DRG 871 ==
LOC: ERS 12:44 → CCU 16:21 → T4-A 04-02 13:29
PROVIDERS: ADMIT Internal Medicine; ATTEND Internal Medicine
PROC: 3E033XZ Introduction of Vasopressor into Peripheral Vein, Percutaneous Approach (ICD-10-PCS; principal; 2019-04-01)
DX: A41.9 Sepsis, unspecified organism (principal); J18.9 Pneumonia, unspecified organism; R65.21 Severe sepsis with septic shock; R64 Cachexia; Z68.1 Body mass index [BMI] 19.9 or less, adult; G25.81 Restless legs syndrome; E03.9 Hypothyroidism, unspecified; Z90.49 Acquired absence of other specified parts of digestive tract; Z90.710 Acquired absence of both cervix and uterus; Z79.899 Other long term (current) drug therapy; Z98.51 Tubal ligation status; Z86.19 Personal history of other infectious and parasitic diseases
CPT/HCPCS: 36415; 36556; 71045; 71250; 80048; 80053; 81001; 81003; 81015; 82533; 83605; 84484; 85025; 85049; 85060; 85300; 85362; 85379; 85384; 85610; 85730; 87040; 87070; 87086; 87102; 87116; 87205; 87206; 87804; 88112; 88305; 88312; 88313; 89051; 93005; 94640; 96361; 96365; J0692; J1650; J1956; J2001; J2704; J2920; J3010; J3370; J3490; J7070; J7620

== ENCOUNTER 2019-07-25 14:42 | Emergency (ER) | payer MEDICARE ==
[2019-07-25 15:20] LABS: #Basophils 0.1 thou/uL (0.0-0.2); #Eosinphils 2.4 thou/uL (0.0-0.7); #Lymphocytes 1.9 thou/uL (1.20-3.40); #Monocytes 0.9 thou/uL (0.11-0.59); #Neutrophils 6.8 thou/uL (1.40-6.50); %Basophils 0.4 % (0.0-1.0); %Eosinophils 19.7 % (0.0-10.0); %Lymphocytes 15.9 % (21.0-51.0); %Monocytes 7.2 % (0.0-10.0); %Neutrophils 56.7 % (42.0-75.0); Hemoglobin 14.5 g/dL (12.0-16.0); Mean Corpuscular HGB CONC 33.2 g/dL (32.0-36.0); Mean Corpuscular Hemoglobin 30.1 pg (27.0-31.0); Mean Corpuscular Volume 90.8 fL (78.0-98.0); Mean Platelet Volume 6.8 fL (7.4-10.4); Platelet Count 421 thou/uL (130-400); RBC Distribution Width 13.3 % (11.5-14.5); Red Blood Cell (RBC) Count 4.83 mill/uL (4.20-5.40); White Blood Cell (WBC) Count 12.1 thou/uL (4.8-10.8)
--- NOTE | 2019-07-25 15:31 | RAD ---
Chest AP view INDICATION: Difficulty breathing and chronic lung disease COMPARISON: Chest 2 views dated June 20, 2019 FINDINGS: Lungs:The extent of the interstitial and airspace opacity involving the right midlung and right lower lobe have improved. Scattered areas of bronchiectasis with reticular nodularity and patchy areas of airspace opacity remain however. There is moderate to prominent hyperinflation. Cardiac silhouette:The cardiomediastinal silhouette appears within normal limits. Pulmonary vasculature:Normal Pleural spaces:No pleural effusion or pneumothorax is demonstrated. Upper abdomen:No abnormality seen. Osseous structures: No acute osseous abnormality. Additional findings:None. IMPRESSION: Some interval improvement in the reticular nodular and airspace opacities the right lower lobe when compared to the most recent chest radiograph; however, areas of reticular nodularity persists within the right lower lobe mixed with areas of bronchiectasis and scattered airspace opacit y. Findings may reflect a recurrent infectious bronchiolitis and pneumonitis from such entities as MAC type infections. The patient is a moderate to prominently hyperinflated likely related to underly ing COPD.
[2019-07-25 15:41] LABS: ALT (SGPT) 18 U/L (8-55); AST (SGOT) 27 U/L (5-34); Alkaline Phosphatase 98 U/L (40-110); Anion Gap 15 mmol/L (10-20); BUN (Urea Nitrogen) 10 mg/dL (9.8-20.1); Bilirubin, Total 0.3 mg/dL (0.2-1.2); CK (CPK) 80 U/L (29-168); Calc. Creatinine Clearance 0 mL/min (70-130); Calcium 9.4 mg/dL (7.8-10.44); Carbon Dioxide 22 mmol/L (23-31); Chloride 104 mmol/L (98-107); Estimated GFR-MDRD 46; Globulin 3.2 g/dL (2.4-3.5); Glucose 75 mg/dL (80-115); Potassium 4.1 mmol/L (3.5-5.1); Protein, Total 7.2 g/dL (6.0-8.3); Sodium 137 mmol/L (136-145)
[2019-07-25] MEDS ORDERED: predniSONE 20 MG TAB ONE (17:16)
== END 2019-07-25 18:16 | disposition home or self-care (01) ==
LOC: ERS 14:42
DX: A31.2 Disseminated mycobacterium avium-intracellulare complex (DMAC) (principal); Z79.899 Other long term (current) drug therapy
CPT/HCPCS: 36415; 71045; 80053; 82550; 83605; 83880; 84484; 85025; 93005; 94640; J7512

== ENCOUNTER 2019-10-26 09:21 | Day surgery (SDC) | payer MEDICARE ==
[2019-10-23 11:05] VITALS: BMI 13.3
[2019-10-26] MEDS ORDERED: Rocuronium Bromide 10 MG/ML (10ML VIAL) ONE (10:04)
[2019-10-26] MEDS ORDERED: PROPOFOL 200 MG/20 ML VIAL ONE (10:04)
[2019-10-26] MEDS ORDERED: Fentanyl 100 MCG/2 ML VIAL ONE (10:58)
[2019-10-26] MEDS ORDERED: SUGAMMADEX SODIUM 200 MG/2 ML VIAL ONE (12:21)
[2019-10-26 14:47] LABS: Body Fluid Source Bronchial Washings; Clarity Cloudy/Turbid (Clear)
[2019-10-26 14:48] LABS: BF Color Pink; BF RBC Count - Manual 35500 /cumm; BF WBC/Nonhematics Ct. - Manua 467 /cumm; Tube # EDTA
[2019-10-26 15:08] LABS: BF Segmented Neutrophils 20 %; Cell Count Non Hematic 38 %; Eosinophils 32 %; Lymphocytes 8 %
--- NOTE | 2019-10-26 16:50 | OP ---
DATE OF PROCEDURE: 10/26/2019 PROCEDURE PERFORMED: Fiberoptic bronchoscopy with. 1. Visual airway inspection. 2. BAL of the right lower lobe and right middle lobe. PREPROCEDURE DIAGNOSES: 1. Mycobacterium avium complex. 2. Pulmonary infiltrate. POSTPROCEDURE DIAGNOSES: 1. Mycobacterium avium complex. 2. Pulmonary infiltrate. MEDICATIONS USED: For a list of medications, please refer to Anesthesia documentation. PREANESTHESIA ASSESSMENT: H and P had been performed. The patient's medications and allergies were reviewed. Informed consent was obtained after discussing the risks, benefits, and rationale for performing the procedure as well as alternative options. DESCRIPTION OF PROCEDURE: A time-out was performed identifying the correct procedure and patient with name and date of . A diagnostic fiberoptic bronchoscope was introduced through the 7.5-[place] endotracheal tube. The bronchoscope was advanced into the trachea where tracheobronchial tree inspection was carried out with clear identification of the right upper lobe, right middle lobe, right lower lobe, left upper lobe, lingula, and left lower lobe. Anatomy was normal to the segmental level without any endobronchial disease. A BAL was obtained from both the right lower lobe and the right middle lobe. The specimen was collected in the same container. Hemostasis was verified and the bronchoscope was subsequently removed from the patient. FINDINGS: 1. No endobronchial disease was identified. 2. Secretions were minimal and quite thin with minimal purulence. SPECIMENS OBTAINED: BAL in the right middle lobe and right lower lobe. COMPLICATIONS: None. ESTIMATED BLOOD LOSS: 2 mL. FLUOROSCOPY TIME: None. DISPOSITION: The patient will be discharged home with postprocedure instructions. She will follow up in clinic as previously directed. Job ID: [id number]
== END 2019-10-26 14:50 | disposition home or self-care (01) ==
LOC: SDC 09:21
PROVIDERS: ATTEND Internal Medicine
PROC: 0B9F8ZX Drainage of Right Lower Lung Lobe, Via Natural or Artificial Opening Endoscopic, Diagnostic (ICD-10-PCS; principal; 2019-10-26)
PROC: 0B9D8ZX Drainage of Right Middle Lung Lobe, Via Natural or Artificial Opening Endoscopic, Diagnostic (ICD-10-PCS; 2019-10-26)
DX: A31.0 Pulmonary mycobacterial infection (principal); Z79.2 Long term (current) use of antibiotics; Z79.899 Other long term (current) drug therapy
CPT/HCPCS: 85060; 87070; 87102; 87116; 87205; 87206; 88112; 88305; 89051; J2704; J3010

== ENCOUNTER 2020-01-12 08:20 | Day surgery (SDC) | payer MEDICARE ==
[2020-01-11 16:37] VITALS: BMI 14.1
--- NOTE | 2020-01-12 08:28 | HP ---
SERVICE: Pulmonary Medicine. INTERVAL HISTORY: The patient returns to clinic 3 months after our previous encounter. It turns out that she ended up having mycobacterium avium complex on a previous bronchoscopy, so she is going to need an additional surveillance bronchoscopy. She denies any nausea, vomiting, or diarrhea. She states she has actually put on 5 pounds since the last time we saw her and is up to 85 pounds. She does not have much of an appetite, mostly because these medications steal it away from her. Otherwise, there has been no interval change to her condition. PAST MEDICAL HISTORY: 1. Hypothyroidism. 2. Chronic kidney disease. 3. Restless legs syndrome. 4. Mycobacterium avium complex with recurrence. 5. 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 6. Bronchiectasis. PAST SURGICAL HISTORY: 1. Hand surgery. 2. Hysterectomy. 3. Tubal ligation. 4. Appendectomy. 5. Bronchoscopy, multiple. FAMILY HISTORY: Positive for diabetes, COPD, cancer, depression, alcoholism, sleep apnea, high blood pressure, and stroke. SOCIAL HISTORY: Negative for alcohol, tobacco, or illicit drug use. She has no exposure to chemicals, dust, asbestos, or tuberculosis. 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 ALLERGIES: NO KNOWN DRUG ALLERGIES. MEDICATIONS: 1. Azithromycin 250 mg p.o. daily. 2. Ethambutol 600 mg p.o. daily. 3. p.o. daily. 4. Vitamin B6 of 50 mg p.o. daily. 5. Gabapentin 100 mg p.o. at bedtime. 6. Zofran 4 mg sublingual q.4 hours p.r.n. 7. Albuterol 2.5 mg nebulized b.i.d. prior to physiotherapy and q.4 hours as needed. 8. Physiotherapy with Vest b.i.d. 9. Mucinex 600 mg p.o. b.i.d. 10. Arikayce nebulized medication (previously suspended secondary to intolerance). REVIEW OF SYSTEMS: General, head, ears, eyes, nose, throat, cardiovascular, respiratory, GI, , musculoskeletal, neurologic, and skin is negative except as mentioned in the HPI. PHYSICAL EXAMINATION: VITAL SIGNS: Afebrile, pulse 84, respirations 18, and saturation 97% on room air. GENERAL: The patient is awake and alert, in no apparent distress. LUNGS: Decent air entry with improvement in rhonchi. No prolonged expiratory phase or wheezing appreciated. HEART: Normal rate, regular. ABDOMEN: Soft, nontender, and nondistended. Bowel sounds positive. MUSCULOSKELETAL: No cyanosis or clubbing. No pitting in bilateral lower extremities. NEUROLOGIC: Grossly nonfocal. IMAGING DATA: CT of the chest was reviewed from March. She had significant bronchiectasis predominantly in the right lower lobe and multiple pulmonary nodules and infiltrates present. LABORATORY DATA: CBC and CMP were reviewed today and are unremarkable with no cytopenias or abnormal LFTs. Creatinine is roughly stable. ASSESSMENT: 1. Mycobacterium avium complex, status post full year of therapy with recurrence of disease after interruption in therapy x1 year. 2. 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 3. Bronchiectasis. 4. Restless legs syndrome. 5. Primary snoring disorder without diagnostic criteria for sleep apnea. 6. Severe protein-calorie malnutrition, improving slightly. DISCUSSION AND PLAN: I am reassured that the patient has put a little bit of weight back on (up to 85 pounds currently). In 3 months and 6 months, we will get a CBC and CMP. In 6 months, I will repeat pulmonary function studies. She is due for screening bronchoscopy. This will be set up for Saturday. I will have her return to clinic in roughly [address] Harris or Dr. Blandon. She understands that she will be on triple therapy for 6 to 9 months after she is able to clear her organism. Currently, she is 6 months into therapy and has failed to clear it. Sensitivities do exist on her Mycobacterium avium complex. I will send her to Infectious Disease, Dr. Huerta, to make certain that these antibiotics are effective based on sensitivities. Job ID: [id number]
[2020-01-12] MEDS ORDERED: Sodium Chloride 0.9% 1,000 ML IV SCH (09:45)
[2020-01-12] MEDS ORDERED: Lidocaine 4% PF 5 ML AMP NEB SCH (09:45)
[2020-01-12] MEDS ORDERED: Succinylcholine Chloride 20 MG/ML 10 ml SYRINGE FS ONE (10:15)
[2020-01-12] MEDS ORDERED: PROPOFOL 200 MG/20 ML VIAL ONE (10:15)
[2020-01-12] MEDS ORDERED: Glycopyrrolate 0.2 MG/ML 5 ML SYRINGE ONE (10:15)
[2020-01-12] MEDS ORDERED: Rocuronium Bromide 10 MG/ML (10ML VIAL) ONE (10:15)
[2020-01-12 12:36] LABS: BF Color Pink; BF WBC/Nonhematics Ct. - Manua 365 /cumm; Body Fluid Source Bronchial Washings; Clarity Hazy (Clear); Tube # 1
[2020-01-12 12:37] LABS: BF RBC Count - Manual 3260 /cumm
[2020-01-12 12:39] LABS: BF Segmented Neutrophils 11 %; Cell Count Non Hematic 77 %; Eosinophils 3 %; Lymphocytes 9 %
--- NOTE | 2020-01-12 22:50 | OP ---
DATE OF PROCEDURE: 01/12/2020 SERVICE: Pulmonary Medicine. PROCEDURES PERFORMED: Fiberoptic bronchoscopy with: 1. Visual airway inspection. 2. Bronchoalveolar lavage of the right upper lobe and right middle lobe. PREPROCEDURE DIAGNOSES: 1. History of mycobacterium avium complex. 2. Pulmonary infiltrate. POSTPROCEDURE DIAGNOSES: 1. History of mycobacterium avium complex. 2. Pulmonary infiltrate. PREANESTHESIA ASSESSMENT: H and P had been performed, one day prior to the procedure. The patient's medications and allergies were reviewed. Informed consent was obtained after discussing the risks, benefits, and rationale for performing the procedure as well as alternative options. DESCRIPTION OF PROCEDURE: A time-out was performed, identifying the correct procedure and patient with name and date of . A diagnostic fiberoptic bronchoscope was introduced through the 8.0-[place] endotracheal tube. The bronchoscope was advanced into the trachea, where a tracheobronchial tree inspection was cleared and carried out with clear identification of the right upper lobe, right middle lobe, right lower lobe, left upper lobe, lingula, and left lower lobe. Anatomy was normal to the segmental level. BAL was obtained from both the right upper lobe and right middle lobe. The specimen was aggregated in the same container. Hemostasis was verified. The bronchoscope was subsequently removed from the patient. FINDINGS: 1. No endobronchial disease was identified. 2. Secretions were minimal, and a thick yellow color. 3. Specimens obtained, combined BAL from the right upper lobe and right middle lobe. COMPLICATIONS: None. ESTIMATED BLOOD LOSS: 2 mL. FLUOROSCOPY TIME: None. DISPOSITION: The patient will be discharged home with postprocedure instructions and to follow up in clinic as previously directed. Job ID: [id number]
[2020-01-15 13:13] LABS: Fungus Stain Final report (.)
== END 2020-01-12 12:55 | disposition home or self-care (01) ==
LOC: SDC 08:20
PROVIDERS: ATTEND Internal Medicine
PROC: 0B9D8ZX Drainage of Right Middle Lung Lobe, Via Natural or Artificial Opening Endoscopic, Diagnostic (ICD-10-PCS; principal; 2020-01-12)
PROC: 0B9C8ZX Drainage of Right Upper Lung Lobe, Via Natural or Artificial Opening Endoscopic, Diagnostic (ICD-10-PCS; 2020-01-12)
DX: A31.0 Pulmonary mycobacterial infection (principal); J47.9 Bronchiectasis, uncomplicated; G25.81 Restless legs syndrome; R06.83 Snoring; E03.9 Hypothyroidism, unspecified; N18.9 Chronic kidney disease, unspecified; E43 Unspecified severe protein-calorie malnutrition; Z68.1 Body mass index [BMI] 19.9 or less, adult; Z79.2 Long term (current) use of antibiotics; Z79.899 Other long term (current) drug therapy
CPT/HCPCS: 85060; 87070; 87102; 87116; 87205; 87206; 89051; J2704; J7620

== ENCOUNTER 2021-03-08 13:51 | Outpatient (CLI) | payer MEDICARE | END 2021-03-08 13:52 | disposition home or self-care (01) | LOC: CTENTCT 13:51 | PROVIDERS: ATTEND Student in an Organized Health Care Education/Training Program | DX: J32.3 Chronic sphenoidal sinusitis (principal) | CPT/HCPCS: 70486 ==

== ENCOUNTER 2021-07-11 10:10 | Outpatient (CLI) | payer MEDICARE | END 2021-07-11 10:11 | disposition home or self-care (01) | LOC: BICRAD 10:10 | PROVIDERS: ATTEND Internal Medicine Gastroenterology | DX: K59.09 Other constipation (principal); R91.8 Other nonspecific abnormal finding of lung field; Z98.890 Other specified postprocedural states | CPT/HCPCS: 74019 ==

== ENCOUNTER 2021-07-12 13:13 | Outpatient (CLI) | payer MEDICARE | END 2021-07-12 13:14 | disposition home or self-care (01) | LOC: BICRAD 13:13 | PROVIDERS: ATTEND Internal Medicine Gastroenterology | DX: R91.8 Other nonspecific abnormal finding of lung field (principal) | CPT/HCPCS: 71046 ==

== ENCOUNTER 2021-12-22 11:58 | Outpatient (CLI) | payer MEDICARE | END 2021-12-22 11:59 | disposition home or self-care (01) | LOC: CT 11:58 | PROVIDERS: ATTEND Student in an Organized Health Care Education/Training Program | DX: J32.3 Chronic sphenoidal sinusitis (principal); J34.89 Other specified disorders of nose and nasal sinuses ==